=== PATIENT | female | born 1955 | race Caucasian/White ===

== ENCOUNTER 2018-06-15 10:58 | Inpatient (IN) | payer OTHER ==
[2018-06-15] MEDS: SODIUM CHLORIDE 0.9% 1L BAG IV* (11:22)
[2018-06-15] MEDS: CEFEPIME 2GM/50 ML (PMX) 50 ML IVPB (11:23)
[2018-06-15 11:24] LABS: WHITE BLOOD COUNT 20.1 10^3/ul (4.8-10.8)
[2018-06-15 11:24] LABS: ABNORMAL IP MESSAGE 1; HEMATOCRIT 25.2 % (37.0-47.0); MEAN CORPUSCULAR HGB CONC 27.8 g/dl (32.0-37.0); MEAN CORPUSCULAR VOLUME 93.7 fl (82.0-101.0); NUCLEATED RED BLOOD CELLS% 0.1 /100WBC (0.0-0.0); PLATELET COUNT 520 10^3/UL (140-415); POSITIVE DIFF @See below; RED BLOOD COUNT 2.69 10^6/ul (4.20-5.40); RED CELL DISTRIBUTION WIDTH 16.6 % (11.5-14.5)
[2018-06-15 11:25] LABS: ADD MAN DIFF? YES
[2018-06-15] MEDS: ACETAMINOPHEN 650 MG SUPP PR (11:33)
[2018-06-15 11:42] LABS: ALANINE AMINOTRANSFERASE 11 IU/L (13-69); ALBUMIN 3.5 g/dl (3.3-4.9); ALBUMIN/GLOBULIN RATIO 0.83; ALKALINE PHOSPHATASE 99 IU/L (42-121); ANION GAP 11 (5-13); ASPARTATE AMINO TRANSFERASE 21 IU/L (15-46); BILIRUBIN,INDIRECT 0.2 mg/dl (0-1.1); BILIRUBIN,TOTAL 0.2 mg/dl (0.2-1.3); BLOOD UREA NITROGEN 51 mg/dl (7-20); CALCIUM 9.1 mg/dl (8.4-10.2); CARBON DIOXIDE 31 mmol/L (21-31); CHLORIDE 110 mmol/L (97-110); CREATININE 0.97 mg/dl (0.44-1.00); Estimated GFR 58 mL/min (>60); GLUCOSE 175 mg/dl (70-220); POTASSIUM 4.5 mmol/L (3.5-5.1); SODIUM 152 mmol/L (135-144); TOTAL PROTEIN 7.7 g/dl (6.1-8.1)
[2018-06-15 11:44] LABS: INR 1.16; PROTIME 14.9 Sec (11.9-14.9); PT RATIO 1.2
[2018-06-15 11:45] LABS: PARTIAL THROMBOPLASTIN TIME 30.7 Sec (23.0-35.0)
[2018-06-15 11:54] LABS: TROPONIN-I 0.058 ng/ml (0.000-0.120)
[2018-06-15 12:20] LABS: ANISOCYTOSIS 2+ (0-0); BAND NEUTROPHILS #M 0.4 10^3/ul (0.0-0.6); BAND NEUTROPHILS % (M) 2 % (0-4); HYPOCHROMASIA 2+ (0-0); LYMPHOCYTES #M 3.6 10^3/ul (0.8-2.9); LYMPHOCYTES % (M) 18 % (15-51); METAMYELOCYTES #M 0.2 10^3/ul (0.0-0.0); METAMYELOCYTES %M 1 % (0-0); MICROCYTOSIS 2+ (0-0); MONOCYTES % (M) 5 % (0-11); PLATELET ESTIMATE INCREASED; POIKILOCYTOSIS 1+ (0-0); POLYCHROMASIA 1+ (0-0); SEGMENTED NEUTROPHILS (M) % 74 % (39-77); SMUDGE%M 26 % (0-0)
[2018-06-15] MEDS: VANCOMYCIN 1 GM (PMX) 250 ML IVPB (13:18)
[2018-06-15] MEDS: LIDOCAINE 1% (MPF) 5 ML VIAL SC (15:55)
[2018-06-15] MEDS ORDERED: NACL 0.9% 3 ML SYG IV (16:00)
[2018-06-15] MEDS ORDERED: DOCUSATE SODIUM 100 MG CAP PO (16:00)
[2018-06-15] MEDS ORDERED: MAGNESIUM HYDROXIDE 30ML CUP PO (16:00)
[2018-06-15] MEDS: FAMOTIDINE 20 MG INJ IV (20:37)
[2018-06-15] MEDS ORDERED: VANCOMYCIN 750 MG (PMX) 250 ML IVPB (22:00)
[2018-06-15] MEDS: CEFEPIME 1GM/50 ML (PMX) 50 ML IVPB (22:38)
[2018-06-15] MEDS: DEXTROSE 5% 1,000 ML IV (22:38)
[2018-06-15] MEDS: SOD CHLORIDE 0.9% 500 ML IV (22:39)
[2018-06-15] MEDS: ACETAMINOPHEN 325 MG TAB PO (23:33)
[2018-06-15] MEDS: VANCOMYCIN 750 MG (PMX) 250 ML IVPB (23:34)
[2018-06-16] MEDS: VANCOMYCIN 750 MG (PMX) 250 ML IVPB ×2 (00:05→12:55)
[2018-06-16 05:35] LABS: ADD MAN DIFF? NO
[2018-06-16 06:08] LABS: ALANINE AMINOTRANSFERASE 17 IU/L (13-69); ALBUMIN 2.7 g/dl (3.3-4.9); ALBUMIN/GLOBULIN RATIO 0.79; ALKALINE PHOSPHATASE 69 IU/L (42-121); ANION GAP 8 (5-13); ASPARTATE AMINO TRANSFERASE 18 IU/L (15-46); BILIRUBIN,INDIRECT 0.1 mg/dl (0-1.1); BILIRUBIN,TOTAL 0.1 mg/dl (0.2-1.3); BLOOD UREA NITROGEN 42 mg/dl (7-20); CALCIUM 7.8 mg/dl (8.4-10.2); CARBON DIOXIDE 26 mmol/L (21-31); CHLORIDE 113 mmol/L (97-110); CHOL/HDL RATIO 4.8 RATIO; CHOLESTEROL 88 mg/dl (100-200); CREATININE 0.71 mg/dl (0.44-1.00); Estimated GFR > 60 mL/min (>60); GLUCOSE 126 mg/dl (70-220); HDL CHOLESTEROL 18 mg/dl (35-98); LDL CHOLESTEROL,CALCULATED 45 mg/dl; POTASSIUM 3.6 mmol/L (3.5-5.1); SODIUM 147 mmol/L (135-144); TOTAL PROTEIN 6.1 g/dl (6.1-8.1); TRIGLYCERIDES 125 mg/dl (0-149)
[2018-06-16 06:32] LABS: THYROID STIMULATING HORMONE 0.969 MIU/L (0.465-4.680)
[2018-06-16 07:47] LABS: WHITE BLOOD COUNT 13.5 10^3/ul (4.8-10.8)
[2018-06-16 07:47] LABS: ABNORMAL IP MESSAGE 1; BASOPHILS % 0.3 % (0.0-2.0); EOSINOPHILS # 0.4 10^3/ul (0.0-0.5); EOSINOPHILS % 2.8 % (0.0-7.0); HEMATOCRIT 23.1 % (37.0-47.0); LYMPHOCYTES # 2.7 10^3/ul (0.8-2.9); MEAN CORPUSCULAR HEMOGLOBIN 25.7 pg (29.0-33.0); MEAN CORPUSCULAR HGB CONC 27.7 g/dl (32.0-37.0); MEAN CORPUSCULAR VOLUME 92.8 fl (82.0-101.0); MEAN PLATELET VOLUME 11.1 fl (7.4-10.4); MONOCYTE # 0.9 10^3/ul (0.3-0.9); MONOCYTES % 6.7 % (0.0-11.0); NEUTROPHIL # 9.2 10^3/ul (1.6-7.5); NEUTROPHILS % 68.5 % (39.0-77.0); NUCLEATED RED BLOOD CELLS% 0.1 /100WBC (0.0-0.0); PLATELET COUNT 361 10^3/UL (140-415); RED BLOOD COUNT 2.49 10^6/ul (4.20-5.40); RED CELL DISTRIBUTION WIDTH 16.1 % (11.5-14.5)
[2018-06-16 07:54] LABS: HEMOGLOBIN 6.4 g/dl (12.0-16.0); PATH REVIEW? YES; POSITIVE DIFF @See below
[2018-06-16 07:58] LABS: ADD UMIC NO; UR ASCORBIC ACID 40 mg/dL (NEGATIVE); UR BILIRUBIN (Dip) NEGATIVE (NEGATIVE); UR BLOOD (Dip) NEGATIVE (NEGATIVE); UR CLARITY CLEAR (CLEAR); UR COLOR YELLOW (YELLOW); UR GLUCOSE (Dip) NEGATIVE (NEGATIVE); UR KETONES (Dip) TRACE mg/dL (NEGATIVE); UR LEUKOCYTE ESTERASE (Dip) NEGATIVE Leu/ul (NEGATIVE); UR NITRITE (Dip) NEGATIVE (NEGATIVE); UR TOTAL PROTEIN (Dip) NEGATIVE (NEGATIVE); UR UROBILINOGEN (Dip) NEGATIVE (NEGATIVE)
[2018-06-16 08:24] LABS: HEMOGLOBIN A1C 6.5 % (0-5.9)
[2018-06-16] MEDS: ENOXAPARIN 30 MG/0.3 ML SYG SC (08:45)
[2018-06-16] MEDS: CEFEPIME 1GM/50 ML (PMX) 50 ML IVPB ×2 (08:45→20:14)
[2018-06-16] MEDS: FAMOTIDINE 20 MG INJ IV (08:45)
[2018-06-16 08:58] LABS: ANISOCYTOSIS 2+ (0-0); EOSINOPHILS % (M) 5 % (0-7); GIANT THROMBO% (M) 1 % (0-0); LYMPHOCYTES #M 3.6 10^3/ul (0.8-2.9); LYMPHOCYTES % (M) 27 % (15-51); MICROCYTOSIS 2+ (0-0); MONOCYTE #M 0.4 10^3/ul (0.3-0.9); MONOCYTES % (M) 3 % (0-11); PLATELET ESTIMATE NORMAL; POLYCHROMASIA 3+ (0-0); SEGMENTED NEUTROPHILS (M) % 65 % (39-77); SMUDGE%M 1 % (0-0)
[2018-06-16] MEDS ORDERED: VANCOMYCIN IV PER PHARMACY XX (09:00)
[2018-06-16 09:42] LABS: TOTAL IRON BINDING CAPACITY 171 ug/dl (241-421)
[2018-06-16 09:50] LABS: IRON < 10 ug/dl (35-150)
[2018-06-16] MEDS: DEXTROSE 5% 1,000 ML IV ×2 (09:50→12:26)
[2018-06-16 13:52] LABS: IMMEDIATE SPIN CROSSMATCH 1 3
[2018-06-16] MEDS: SOD FERRIC GLUC COMPLX 125 MG in SOD CHLORIDE 0.9% 100 ML IVPB (17:06)
[2018-06-17 00:22] LABS: VANCOMYCIN,TROUGH 15.4 ug/ml (10.0-20.0)
[2018-06-17] MEDS: VANCOMYCIN 750 MG (PMX) 250 ML IVPB ×2 (01:44→13:12)
[2018-06-17] MEDS: DEXTROSE 5% 1,000 ML IV ×2 (01:45→17:25)
[2018-06-17] MEDS: morphine 2 MG INJ IV (01:52)
[2018-06-17] MEDS: PROPOFOL 100 ML IV ×2 (02:10→14:00)
[2018-06-17] MEDS: MIDAZOLAM (DRIP) 50 mg/50 mL 50 ML IV ×2 (02:29→07:17)
[2018-06-17] MEDS: NORepinephrine 8MG/250 ML (PMX 250 ML IV (03:25)
[2018-06-17 05:37] LABS: ADD MAN DIFF? NO
[2018-06-17 05:42] LABS: BASOPHILS % 0.3 % (0.0-2.0); EOSINOPHILS # 0.5 10^3/ul (0.0-0.5); HEMATOCRIT 24.9 % (37.0-47.0); HEMOGLOBIN 7.4 g/dl (12.0-16.0); LYMPHOCYTES # 1.7 10^3/ul (0.8-2.9); LYMPHOCYTES % 14.8 % (15.0-51.0); MEAN CORPUSCULAR HEMOGLOBIN 26.1 pg (29.0-33.0); MEAN CORPUSCULAR HGB CONC 29.7 g/dl (32.0-37.0); MEAN CORPUSCULAR VOLUME 87.7 fl (82.0-101.0); MEAN PLATELET VOLUME 11.8 fl (7.4-10.4); MONOCYTE # 0.7 10^3/ul (0.3-0.9); MONOCYTES % 5.5 % (0.0-11.0); NEUTROPHIL # 8.6 10^3/ul (1.6-7.5); NUCLEATED RED BLOOD CELLS% 0.2 /100WBC (0.0-0.0); PLATELET COUNT 357 10^3/UL (140-415); RED BLOOD COUNT 2.84 10^6/ul (4.20-5.40); RED CELL DISTRIBUTION WIDTH 16.5 % (11.5-14.5)
[2018-06-17 05:42] LABS: WHITE BLOOD COUNT 11.8 10^3/ul (4.8-10.8)
[2018-06-17 06:06] LABS: ANION GAP 5 (5-13); BLOOD UREA NITROGEN 27 mg/dl (7-20); CALCIUM 7.9 mg/dl (8.4-10.2); CARBON DIOXIDE 24 mmol/L (21-31); CHLORIDE 113 mmol/L (97-110); CREATININE 0.52 mg/dl (0.44-1.00); Estimated GFR > 60 mL/min (>60); GLUCOSE 165 mg/dl (70-220); MAGNESIUM 2.3 mg/dl (1.7-2.5); PHOSPHORUS 1.7 mg/dl (2.5-4.9); POTASSIUM 3.3 mmol/L (3.5-5.1); SODIUM 142 mmol/L (135-144)
[2018-06-17] MEDS: FAMOTIDINE 20 MG INJ IV (08:31)
[2018-06-17] MEDS: CEFEPIME 1GM/50 ML (PMX) 50 ML IVPB ×2 (08:33→20:42)
[2018-06-17 09:20] LABS: AADO2 Arterial 100.8 mmHg (7.0-24.0); Allen Test ACCEPTAB; Arterial Base Excess -0.8 mmol/L (-3.0-3); Arterial Blood Gas Oxygen Sat 95.5 mmHG (95.0-98.0); Arterial COHb 0.3 % (0.0-3.0); Arterial Fraction of Oxyhgb 95.1 % (93.0-99.0); Arterial HCO3 22.6 mmol/L (22.0-26.0); Arterial MetHb 0.1 % (0.0-1.5); Arterial pCO2 32.3 mmhg (35-45); MODE VENT - AC; Site Right Radial
[2018-06-17 10:19] LABS: OCCULT BLOOD STOOL NEGATIVE (NEGATIVE)
[2018-06-17] MEDS: SOD FERRIC GLUC COMPLX 125 MG in SOD CHLORIDE 0.9% 100 ML IVPB (13:12)
[2018-06-17] MEDS: POTASSIUM CHLORIDE 100 ML IVPB (17:22)
[2018-06-18] MEDS: VANCOMYCIN 750 MG (PMX) 250 ML IVPB ×2 (01:59→14:27)
[2018-06-18 06:33] LABS: WHITE BLOOD COUNT 11.2 10^3/ul (4.8-10.8)
[2018-06-18 06:33] LABS: ABNORMAL IP MESSAGE 1; HEMATOCRIT 32.9 % (37.0-47.0); MEAN CORPUSCULAR HEMOGLOBIN 26.4 pg (29.0-33.0); MEAN CORPUSCULAR HGB CONC 30.4 g/dl (32.0-37.0); MEAN CORPUSCULAR VOLUME 86.8 fl (82.0-101.0); MEAN PLATELET VOLUME 11.9 fl (7.4-10.4); NUCLEATED RED BLOOD CELLS% 0.5 /100WBC (0.0-0.0); PLATELET COUNT 244 10^3/UL (140-415); RED BLOOD COUNT 3.79 10^6/ul (4.20-5.40); RED CELL DISTRIBUTION WIDTH 15.5 % (11.5-14.5)
[2018-06-18 06:35] LABS: POSITIVE DIFF @See below
[2018-06-18 06:36] LABS: ADD MAN DIFF? YES
[2018-06-18 06:54] LABS: ANION GAP 7 (5-13); BLOOD UREA NITROGEN 18 mg/dl (7-20); CALCIUM 8.4 mg/dl (8.4-10.2); CARBON DIOXIDE 25 mmol/L (21-31); CHLORIDE 110 mmol/L (97-110); CREATININE 0.47 mg/dl (0.44-1.00); Estimated GFR > 60 mL/min (>60); GLUCOSE 137 mg/dl (70-220); PHOSPHORUS 1.7 mg/dl (2.5-4.9); POTASSIUM 3.5 mmol/L (3.5-5.1); SODIUM 142 mmol/L (135-144)
[2018-06-18 07:09] LABS: MAGNESIUM 2.3 mg/dl (1.7-2.5)
[2018-06-18] MEDS: FAMOTIDINE 20 MG TAB GTB (08:29)
[2018-06-18] MEDS: CEFEPIME 1GM/50 ML (PMX) 50 ML IVPB ×2 (08:29→20:21)
[2018-06-18 08:31] LABS: ANISOCYTOSIS 2+ (0-0); BAND NEUTROPHILS #M 0.3 10^3/ul (0.0-0.6); BAND NEUTROPHILS % (M) 3 % (0-4); BASOPHIL #M 0.1 10^3/ul (0.0-0.0); BASOPHILS % (M) 1 % (0-2); EOSINOPHILS % (M) 4 % (0-7); LYMPHOCYTES #M 1.2 10^3/ul (0.8-2.9); LYMPHOCYTES % (M) 11 % (15-51); METAMYELOCYTES #M 0.1 10^3/ul (0.0-0.0); METAMYELOCYTES %M 1 % (0-0); MICROCYTOSIS 2+ (0-0); MONOCYTE #M 0.7 10^3/ul (0.3-0.9); MONOCYTES % (M) 7 % (0-11); MYELOCYTES #M 0.2 10^3/ul (0.0-0.0); MYELOCYTES % (M) 2 % (0-0); PLATELET ESTIMATE NORMAL; POIKILOCYTOSIS 1+ (0-0); POLYCHROMASIA 2+ (0-0); REACTIVE LYMPHOCYTES #M 0.4 10^3/ul (0.0-0.0); REACTIVE LYMPHOCYTES% (M) 4 % (0-0); SEG NEUT #M 7.5 10^3/ul (1.6-7.5); SEGMENTED NEUTROPHILS (M) % 67 % (39-77); SMUDGE%M 14 % (0-0)
[2018-06-18] MEDS: SOD FERRIC GLUC COMPLX 125 MG in SOD CHLORIDE 0.9% 100 ML IVPB (13:12)
[2018-06-18] MEDS: DEXTROSE 5% 1,000 ML IV (15:10)
[2018-06-19 01:24] LABS: VANCOMYCIN,TROUGH 14.8 ug/ml (10.0-20.0)
[2018-06-19] MEDS: VANCOMYCIN 750 MG (PMX) 250 ML IVPB ×2 (01:38→12:41)
[2018-06-19] MEDS: DEXTROSE 5% 1,000 ML IV ×2 (02:21→06:15)
[2018-06-19 06:57] LABS: CREATININE 0.42 mg/dl (0.44-1.00)
[2018-06-19 06:57] LABS: BLOOD UREA NITROGEN 16 mg/dl (7-20)
[2018-06-19] MEDS: FAMOTIDINE 20 MG TAB GTB (09:07)
[2018-06-19] MEDS: SOD PHOS MONO/DIBAS 250 MG TAB PO ×2 (09:07→21:29)
[2018-06-19] MEDS: CEFEPIME 1GM/50 ML (PMX) 50 ML IVPB (09:08)
[2018-06-19] MEDS: METOCLOPRAMIDE 10 MG TAB GTB ×2 (12:41→18:08)
[2018-06-19] MEDS: ONDANSETRON 4 MG INJ IV (12:46)
[2018-06-19] MEDS: LEVOFLOXACIN 750 MG TABLET PO (15:21)
[2018-06-19] MEDS: SOD FERRIC GLUC COMPLX 125 MG in SOD CHLORIDE 0.9% 100 ML IVPB (15:22)
[2018-06-20] MEDS: DEXTROSE 5% 1,000 ML IV (04:32)
[2018-06-20] MEDS: LEVOFLOXACIN 500 MG TAB PO (05:43)
[2018-06-20] MEDS: METOCLOPRAMIDE 10 MG TAB GTB ×4 (05:43→17:57)
[2018-06-20 06:45] LABS: WHITE BLOOD COUNT 9.6 10^3/ul (4.8-10.8)
[2018-06-20 06:45] LABS: ABNORMAL IP MESSAGE 1; HEMATOCRIT 29.2 % (37.0-47.0); HEMOGLOBIN 8.9 g/dl (12.0-16.0); MEAN CORPUSCULAR HEMOGLOBIN 26.7 pg (29.0-33.0); MEAN CORPUSCULAR HGB CONC 30.5 g/dl (32.0-37.0); MEAN CORPUSCULAR VOLUME 87.7 fl (82.0-101.0); MEAN PLATELET VOLUME 10.9 fl (7.4-10.4); NUCLEATED RED BLOOD CELLS% 0.2 /100WBC (0.0-0.0); PLATELET COUNT 350 10^3/UL (140-415); RED BLOOD COUNT 3.33 10^6/ul (4.20-5.40); RED CELL DISTRIBUTION WIDTH 15.7 % (11.5-14.5)
[2018-06-20 06:46] LABS: ADD MAN DIFF? YES; POSITIVE DIFF @See below
[2018-06-20 07:34] LABS: ANION GAP 5 (5-13); BLOOD UREA NITROGEN 13 mg/dl (7-20); CALCIUM 8.4 mg/dl (8.4-10.2); CARBON DIOXIDE 28 mmol/L (21-31); CHLORIDE 107 mmol/L (97-110); Estimated GFR > 60 mL/min (>60); GLUCOSE 136 mg/dl (70-220); POTASSIUM 3.4 mmol/L (3.5-5.1); SODIUM 140 mmol/L (135-144)
[2018-06-20 07:37] LABS: PHOSPHORUS 2.6 mg/dl (2.5-4.9)
[2018-06-20 08:09] LABS: ANISOCYTOSIS 3+ (0-0); BAND NEUTROPHILS #M 0.3 10^3/ul (0.0-0.6); BAND NEUTROPHILS % (M) 4 % (0-4); EOSINOPHILS % (M) 3 % (0-7); LYMPHOCYTES #M 1.7 10^3/ul (0.8-2.9); LYMPHOCYTES % (M) 18 % (15-51); METAMYELOCYTES %M 1 % (0-0); MICROCYTOSIS 3+ (0-0); MONOCYTE #M 0.5 10^3/ul (0.3-0.9); MONOCYTES % (M) 6 % (0-11); MYELOCYTES #M 0.2 10^3/ul (0.0-0.0); MYELOCYTES % (M) 3 % (0-0); PLATELET ESTIMATE NORMAL; POLYCHROMASIA 3+ (0-0); REACTIVE LYMPHOCYTES% (M) 1 % (0-0); SEG NEUT #M 6.2 10^3/ul (1.6-7.5); SEGMENTED NEUTROPHILS (M) % 64 % (39-77); SMUDGE%M 9 % (0-0)
[2018-06-20] MEDS: FAMOTIDINE 20 MG TAB GTB (09:49)
[2018-06-20] MEDS: SOD PHOS MONO/DIBAS 250 MG TAB PO ×2 (09:49→21:03)
[2018-06-20] MEDS: ONDANSETRON 4 MG INJ IV (11:01)
[2018-06-20] MEDS: SOD FERRIC GLUC COMPLX 125 MG in SOD CHLORIDE 0.9% 100 ML IVPB (12:51)
[2018-06-20] MEDS: POTASSIUM CHLORIDE 20 MEQ POWDER FOR ORAL SOLN GTB (17:57)
[2018-06-21] MEDS: METOCLOPRAMIDE 10 MG TAB GTB ×5 (00:18→23:37)
[2018-06-21] MEDS: LEVOFLOXACIN 500 MG TAB PO (05:31)
[2018-06-21] MEDS: FAMOTIDINE 20 MG TAB GTB (08:06)
[2018-06-21] MEDS: ONDANSETRON 4 MG INJ IV (08:06)
[2018-06-21] MEDS: SOD PHOS MONO/DIBAS 250 MG TAB PO ×2 (08:06→21:37)
[2018-06-21 08:37] LABS: ABNORMAL IP MESSAGE 1; HEMATOCRIT 29.1 % (37.0-47.0); HEMOGLOBIN 8.8 g/dl (12.0-16.0); MEAN CORPUSCULAR HEMOGLOBIN 26.7 pg (29.0-33.0); MEAN CORPUSCULAR HGB CONC 30.2 g/dl (32.0-37.0); MEAN CORPUSCULAR VOLUME 88.2 fl (82.0-101.0); MEAN PLATELET VOLUME 10.9 fl (7.4-10.4); NUCLEATED RED BLOOD CELLS% 0.2 /100WBC (0.0-0.0); PLATELET COUNT 368 10^3/UL (140-415); RED CELL DISTRIBUTION WIDTH 15.8 % (11.5-14.5)
[2018-06-21 08:37] LABS: WHITE BLOOD COUNT 9.1 10^3/ul (4.8-10.8)
[2018-06-21 08:43] LABS: ADD MAN DIFF? YES; POSITIVE DIFF @See below
[2018-06-21 09:10] LABS: ANISOCYTOSIS 1+ (0-0); BASOPHILS % (M) 1 % (0-2); EOSINOPHILS % (M) 3 % (0-7); GIANT THROMBO% (M) 5 % (0-0); LYMPHOCYTES #M 1.8 10^3/ul (0.8-2.9); LYMPHOCYTES % (M) 20 % (15-51); METAMYELOCYTES #M 0.1 10^3/ul (0.0-0.0); METAMYELOCYTES %M 2 % (0-0); MICROCYTOSIS 1+ (0-0); MONOCYTE #M 0.5 10^3/ul (0.3-0.9); MONOCYTES % (M) 6 % (0-11); PLATELET ESTIMATE NORMAL; POLYCHROMASIA 2+ (0-0); SEGMENTED NEUTROPHILS (M) % 68 % (39-77); SMUDGE%M 6 % (0-0)
[2018-06-21 10:15] LABS: ANION GAP 8 (5-13); BLOOD UREA NITROGEN 13 mg/dl (7-20); CALCIUM 8.7 mg/dl (8.4-10.2); CARBON DIOXIDE 28 mmol/L (21-31); CHLORIDE 103 mmol/L (97-110); CREATININE 0.43 mg/dl (0.44-1.00); Estimated GFR > 60 mL/min (>60); GLUCOSE 128 mg/dl (70-220); POTASSIUM 3.8 mmol/L (3.5-5.1); SODIUM 139 mmol/L (135-144)
[2018-06-21] MEDS: ENOXAPARIN 30 MG/0.3 ML SYG SC (18:21)
[2018-06-22] MEDS: LEVOFLOXACIN 500 MG TAB PO (06:07)
[2018-06-22] MEDS: METOCLOPRAMIDE 10 MG TAB GTB ×2 (06:08→13:12)
[2018-06-22] MEDS: SOD PHOS MONO/DIBAS 250 MG TAB PO (09:14)
[2018-06-22] MEDS: FAMOTIDINE 20 MG TAB GTB (09:14)
[2018-06-22] MEDS: ENOXAPARIN 30 MG/0.3 ML SYG SC (09:16)
== END 2018-06-22 19:00 | DRG 870 ==
LOC: E/R 10:58 → TEL 06-17 22:16 → ICU 13:59
PROC: 5A1955Z Respiratory Ventilation, Greater than 96 Consecutive Hours (ICD-10-PCS; principal; 2018-06-15)
PROC: 02H633Z Insertion of Infusion Device into Right Atrium, Percutaneous Approach (ICD-10-PCS; 2018-06-15)
PROC: B54NZZA Ultrasonography of Left Upper Extremity Veins, Guidance (ICD-10-PCS; 2018-06-15)
PROC: 30233N1 Transfusion of Nonautologous Red Blood Cells into Peripheral Vein, Percutaneous Approach (ICD-10-PCS; 2018-06-16)
DX: A41.9 Sepsis, unspecified organism (principal); L89.153 Pressure ulcer of sacral region, stage 3; J69.0 Pneumonitis due to inhalation of food and vomit; E87.0 Hyperosmolality and hypernatremia; J96.10 Chronic respiratory failure, unspecified whether with hypoxia or hypercapnia; G93.49 Other encephalopathy; Z99.11 Dependence on respirator [ventilator] status; R65.20 Severe sepsis without septic shock; E78.5 Hyperlipidemia, unspecified; E11.9 Type 2 diabetes mellitus without complications; D63.8 Anemia in other chronic diseases classified elsewhere; D50.9 Iron deficiency anemia, unspecified; R13.10 Dysphagia, unspecified; I10 Essential (primary) hypertension; E86.0 Dehydration; I73.9 Peripheral vascular disease, unspecified; Z93.0 Tracheostomy status; Z93.1 Gastrostomy status; Z89.422 Acquired absence of other left toe(s); Z86.73 Personal history of transient ischemic attack (TIA), and cerebral infarction without residual deficits
CPT/HCPCS: 36415; 36430; 36569; 36600; 71045; 76937; 80048; 80053; 80061; 80202; 81003; 82270; 82565; 82607; 82728; 82803; 83036; 83540; 83605; 83735; 84100; 84443; 84484; 84520; 85025; 85610; 85730; 86850; 86900; 86901; 86920; 87040-91; 87081; 87086; 87400; 93005; 94002; 94003; 96365; 96367; 99291-25